=== PATIENT | female | born 1975 | race African-American/Black ===

== ENCOUNTER 2018-03-01 15:22 | Emergency (ER) | payer OTHER ==
[~2018-03-01] VITALS: Ht 167.6 cm; Wt 75.3 kg
[~2018-03-01 15:22] MED LIST: 12 HOUR DECONG120 M1 PO; AURALGAN14.8 ML LEFT EAR; Colace PO; ENDOCET 5-3251 EACH PO; Feosol PO; GLIPIZIDE5 M1 PO; GLUCOPHAGE1000 M1 PO; Glucophage PO; Motrin PO; NOHOMEMEDS; PREFERA-OB P1 TABLET PO; Percocet 5/325,Endoc PO; ZYRTEC10 M2 PO
[2018-03-01] MEDS ORDERED: FLEXERIL10 MG PO (20:19)
[2018-03-01] MEDS ORDERED: NAPROXEN500 MG PO (20:19)
[2018-03-01 20:36] VITALS: BP 140/73
== END 2018-03-01 20:37 | disposition home or self-care (01) ==
LOC: EME 15:22
DX: S16.1XXA Strain of muscle, fascia and tendon at neck level, initial encounter (principal); R51 Headache; V49.40XA Driver injured in collision with unspecified motor vehicles in traffic accident, initial encounter; Y92.410 Unspecified street and highway as the place of occurrence of the external cause; Z88.2 Allergy status to sulfonamides
CPT/HCPCS: 70450; 72125; 99281; 99284

== ENCOUNTER 2018-03-17 22:06 | Emergency (ER) | payer OTHER ==
[~2018-03-17] VITALS: Ht 165.1 cm; Wt 78.1 kg
[~2018-03-17 22:06] MED LIST changes: +FLEXERIL10 MG PO; +NAPROXEN500 MG PO
[2018-03-18 00:27] VITALS: BP 123/87
== END 2018-03-18 00:28 | disposition home or self-care (01) ==
LOC: EME 22:06
DX: S10.11XA Abrasion of throat, initial encounter (principal); X58.XXXA Exposure to other specified factors, initial encounter; R09.89 Other specified symptoms and signs involving the circulatory and respiratory systems; F17.200 Nicotine dependence, unspecified, uncomplicated; Z88.2 Allergy status to sulfonamides
CPT/HCPCS: 70360; 99281; 99284